=== PATIENT | female | born 1960 | race American Indian/Alaskan Native ===

== ENCOUNTER 2016-09-15 07:53 | Emergency (ER) | payer OTHER ==
[2016-09-15 12:05] VITALS: BP 156/91
[2016-09-15] MEDS ORDERED: FLEXERIL PO ONE (12:19)
[2016-09-15] MEDS ORDERED: TORADOL IM ONE (12:19)
[2016-09-15] MEDS ORDERED: NORCO 5/325 PO ONE (12:19)
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
== END 2016-09-15 13:34 | disposition home or self-care (01) ==
LOC: ED 07:53
DX: M54.2 Cervicalgia (principal); V49.49XA Driver injured in collision with other motor vehicles in traffic accident, initial encounter; Y93.9 Activity, unspecified; Y92.89 Other specified places as the place of occurrence of the external cause; Y99.9 Unspecified external cause status
CPT/HCPCS: 72040; 96372; 99283; J1885